=== PATIENT | male | born 1970 ===

== ENCOUNTER 2017-11-11 19:56 | Emergency (ER) | payer MEDICAID ==
[2017-11-11 19:57] VITALS: BMI 33.3
[2017-11-11 20:04] VITALS: BP 129/78; RESP 18; TEMP 99.1
--- NOTE | 2017-11-11 21:21 | ED PDOC ---
Lower Extremity Pain/Injury Time Seen by Provider: 11/11/17 20:36 Chief Complaint (Nursing): Lower Extremity Problem/Injury Chief Complaint (Provider): Right ankle injury History Per: Patient History/Exam Limitations: no limitations Onset/Duration Of Symptoms: Days Current Symptoms Are (Timing): Still Present Additional Complaint(s): Patient reports sustaining an injury to right ankle a few weeks ago. He was evaluated at [facility] on 10/25 and had x-rays showing fracture of distal fibula , splint was applied. Patient states he went to follow up with a doctor and was advised to come to the ED. He notes pain and swelling to right ankle and foot. Otherwise: (-) fever, (-) numbness, (-) other injury. PMD: Richmond Avila Past Medical History Reviewed: Historical Data, Nursing Documentation, Vital Signs Vital Signs: Last Vital Signs Temp 99.1 F 11/11/17 20:01 Pulse 106 H 11/11/17 20:01 Resp 18 11/11/17 20:01 BP 129/78 11/11/17 20:01 Pulse Ox 98 11/11/17 20:01 - Medical History PMH: Asthma (NEVER HOSPITALIZED), Fractures - Family History Family History: States: Unknown Family Hx - Home Medications Home Medications: Ambulatory Orders Medication Instructions Recorded Albuterol HFA [Ventolin HFA 90 2 puff IH [id number] PRN 03/26/16 mcg/actuation (8 g)] Fluticasone Nasal [Flonase] 1 spr NS DAILY 03/26/16 Ibuprofen [Motrin Tab] 800 mg PO BID PRN 03/26/16 Montelukast [Singulair] 10 mg PO DAILY 03/26/16 - Allergies Allergies/Adverse Reactions: Allergies Allergy/AdvReac Type Severity Reaction Status Date / Time Penicillins Allergy Intermediate RASH Verified 03/26/16 11:16 Review of Systems ROS Statement: Except As Marked, All Systems Reviewed And Found Negative Musculoskeletal: Positive for: Foot Pain Neurological: Negative for: Weakness, Numbness Physical Exam - Reviewed Nursing Documentation Reviewed: Yes Vital Signs Reviewed: Yes - Physical Exam Comments: GENERAL APPEARANCE: Patient is awake, alert, oriented x 3, in no acute distress. SKIN: Warm, dry; (-) cyanosis. LOWER EXTREMITY: (+) Edema to the right ankle and over dorsum of foot, (+) ecchymosis noted, (+) tender to palpation. Cap refill is normal. Achilles tendon intact and nontender. Knee: (-) injury. CARDIOVASCULAR: (+) distal pulse. NEUROLOGIC: (+) distal sensation. - ECG O2 Sat by Pulse Oximetry: 98 (RA) Pulse Ox Interpretation: Normal Medical Decision Making Medical Decision Making: Impression: Right ankle injury Time: 21:07 Initial Plan: --Repeat right ankle x-ray --Obtain right foot x-ray --Requested podiatry consult XR R ANKLE: No fracture, no dislocation as read by MYRIAM XR R FOOT: No fracture, no dislocation as read by MYRIAM Case discussed with podiatry resident Dr. Hester, who reviewed the x-rays and agreed to order an x-ray of the tib-fib, she will come and evaluate the patient. Dr. Hester came and evaluated the patient. XR tib-fib reviewed with her. She will consult her attending and Dr. Cotton for further plan of care. XR R TIB-FIB : (+) fracture of the proximal fibula, as read by MYRIAM. Case endorsed to MYRIAM Diggs at midnight pending final disposition as per podiatry resident. Scribe Attestation: Documented by Lainey Roth, acting as a scribe for Yoselin Winters PA-C. Provider Scribe Attestation: All medical record entries made by the Scribe were at my direction and personally dictated by me. I have reviewed the chart and agree that the record accurately reflects my personal performance of the history, physical exam, medical decision making, and the department course for this patient. I have also personally directed, reviewed, and agree with the discharge instructions and disposition. Disposition - Clinical Impression Clinical Impression: Ankle swelling, Foot swelling, Fibula fracture - Patient ED Disposition Is Patient to be Admitted: Transfer of Care (Case endorsed to MYRIAM Diggs at midnight pending final disposition as per podiatry resident.) Counseled Patient/Family Regarding: Studies Performed, Diagnosis - Disposition Disposition Time: 00:00 Condition: STABLE Forms: [employer] (Bangladeshi) - PA / PLATE FITTER / Resident Statement MD/DO has reviewed & agrees with the documentation as recorded.
[2017-11-11 23:33] VITALS: PULSE 95
--- NOTE | 2017-11-11 23:55 | CP.PCM.PN ---
Subjective - Date & Time of Evaluation Date of Evaluation: 11/11/17 Time of Evaluation: 23:45 - Subjective Subjective: Podiatry Consult Note- Dr. Solomon 47 y.o male with PMH of asthma presents to the ED for right ankle swelling and right high fibular fracture. Patient reports that on 10/26/17, he was jogging outside when his ankle rolled inwards and he fell over. Patient reports that he went to the ED at [facility] the same day and was told that he has a right high fibular fracture, placed in a splint, and told to NWB and follow up with an orthopedics. Patient reports that he tried going to the Orthopedics and was denied because the office did not take his insurance. He was told by his doctor to go to the [facility] ED for evaluation. Patient reports pain to the lateral upper right leg. Reports Ibuprofen helps with the pain. Rates the pain 2/10 and describe the pain as a dull pain to the upper leg. Patient also reports swelling to the ankle. Denies ankle pain at the moment when resting. Denies numbness and tingling. Denies nausea, fever, shortness of breath, chest pain, or chills. Reports he has continued to NWB in crutches since the incident. Reports the pain and swelling has decreased since injury. PMD: Dr. Avila PMH: asthma, denies heart disease PSH: upper abdominal surgery/heart surgery? patient reported that had fluid buildup in heart secondary to asthma pump he used; had to perform surgery to remove fluid from chest ALL: Pencillin- swelling MEDS: Ibuprofen FH: mother- denies, father- denies, father's sister- heart disease SH: denies smoking, drinking, or illicit drug use Objective - Vital Signs/Intake and Output Vital Signs (last 24 hours): Temp Pulse Resp BP Pulse Ox 99.1 F 95 H 18 129/78 100 11/11/17 20:01 11/11/17 23:33 11/11/17 20:01 11/11/17 20:01 11/11/17 23:33 - Constitutional Appears: Well, Non-toxic, No Acute Distress - ENT Exam ENT Exam: Mucous Membranes Moist - Cardiovascular Exam Cardiovascular Exam: +S1, +S2 - Extremities Exam Extremities Exam: absent: Calf Tenderness Additional comments: VASC: DP and PT 2/4 bilaterally, CFT < 3 seconds to the digits, temperature gradient WNL, moderate non pitting edema noted to the right ankle and forefoot ORTHO: moderate pain with palpation to the right proximal fibular at the fibular neck, mild pain to the medial malleolus, mild pain with external rotation and dorsiflexion of the right ankle, no appreciable pain with palpation to the lateral ligaments or deltoid ligaments. Able to wiggle toes, MM is 4/5 in all four compartments in dorsiflexion, plantarflexion, inversion, and eversion. Able to perform right ankle active ROM and passive ROM, no pain to heel squeeze or palpation to the heel Neuro: protective and gross sensation intact bilaterally Derm: ecchymosis noted to the medial aspect of the heel, no blisters, no erythema, no open lesions noted, no clinical signs of infection - Neurological Exam Neurological Exam: Alert, Awake, Oriented x3 - Psychiatric Exam Psychiatric exam: Normal Affect, Normal Mood Assessment and Plan - Assessment and Plan (Free Text) Assessment: 47 y.o male with PMH of asthma with right high fibular fracture and right ankle swelling with possible syndemosis injury Plan: Patient examined and evaluated Discussed plan in detail with attending Dr. Solomon X-rays high tib-fib reviewed- right proximal fibular fracture noted X-rays ankle reviewed- no fractures or dislocation noted Ibuprofen for pain and swelling Instructed on RICE protocol Pt to continue NWB in crutches in posterior splint and Guzmán Compression Explained to patient about possible right ankle syndesmotic injury. May need MRI or surgery in the future to repair. Patient reports understanding. Pt to follow up with podiatry clinic with Dr. Solomon on Saturday Pt instructed to call for an appointment Thank you for allowing us to take part in patient's care
[2017-11-12 00:07] VITALS: O2SAT 98
--- NOTE | 2017-11-12 01:10 | ED PDOC ---
- ECG O2 Sat by Pulse Oximetry: 98 (RA) - Progress ED Course And Treament: Case endorsed to software writer from [facility] pending podiatry consult Patient placed in posterior splint by podiatry resident on-call, advised nonweight bearing with crutches. Follow up with Dr. Solomon in podiatry clinic Wed. Rx ibuprofen given Return precautions given Disposition - Clinical Impression Clinical Impression: Ankle swelling, Foot swelling, Fibula fracture - POA Present On Arrival: None, Falls Or Trauma - Disposition Referrals: Podiatry Clinic [Outside] Disposition: Routine/Home Disposition Time: 01:10 Condition: STABLE Prescriptions: Ibuprofen [Motrin Tab] 1 tab PO Q6 PRN #20 tab PRN Reason: Pain, Moderate (4-7) Instructions: Fibula Fracture, Ankle Sprain Forms: [employer] (Romanian)
--- NOTE | 2017-11-12 08:49 | RAD ---
PROCEDURE: Right Foot Radiographs. HISTORY: h/o fx to fibula COMPARISON: None. FINDINGS: BONES: No acute fracture. JOINTS: Normal. SOFT TISSUES: Normal. OTHER FINDINGS: Achilles enthesophyte. Inferior plantar calcaneal spur. IMPRESSION: No demonstrated acute fracture or dislocation.
--- NOTE | 2017-11-12 08:49 | RAD ---
PROCEDURE: Right Ankle Radiographs. HISTORY: h/o fx to fibula COMPARISON: None FINDINGS: BONES: No acute fracture. JOINTS: Ankle mortise maintained. Talar dome intact SOFT TISSUES: Normal. OTHER FINDINGS: Achilles enthesophyte. Inferior plantar calcaneal spur. IMPRESSION: No demonstrated acute fracture or dislocation.
--- NOTE | 2017-11-12 08:53 | RAD ---
PROCEDURE: Radiographs of the right tibia and fibula. HISTORY: pain, h/o fib fracture COMPARISON: None available. TECHNIQUE: Frontal and lateral views obtained. FINDINGS: BONES: Minimally displaced acute proximal fibular meta diaphyseal fracture. JOINT SPACES: Unremarkable. OTHER FINDINGS: Achilles enthesophyte. Small inferior plantar calcaneal spur. IMPRESSION: Minimally displaced acute proximal fibular metaphyseal fracture.
== END 2017-11-12 01:20 | disposition home or self-care (01) ==
LOC: H.ER 19:56
DX: S82.401D Unspecified fracture of shaft of right fibula, subsequent encounter for closed fracture with routine healing (principal); M79.89 Other specified soft tissue disorders; J45.909 Unspecified asthma, uncomplicated; Z88.0 Allergy status to penicillin

== ENCOUNTER 2018-01-01 08:40 | Emergency (ER) | payer MEDICAID ==
[2018-01-01 08:40] VITALS: BMI 33.0
--- NOTE | 2018-01-01 11:10 | ED PDOC ---
HPI: Wound Care - HPI Time Seen by Provider: 01/01/18 09:02 Chief Complaint (Nursing): Wound Check Chief Complaint (Provider): Cast Removal History Per: Patient, Agile Test Lead (Lissy Agile Test Lead Landon) Exam Limitations: no limitations Onset/Duration Of Symptoms: Unknown Current Symptoms Are (Timing): Still Present Additional Complaint(s): 47 y/o male with a PMHx of heart problems (unknown specifics) presenting to request the cast on his RLE be removed. Patient is a very poor historian and is unable to tell provider when the cast or by who. Per old charts, patient visited a podiatry clinic to have his ankle cast placed and a catheter. Patient is complaining of itchiness and discomfort in the area of his cast. History is limited due to patients lack of awareness of care history. PMD: None Past Medical History Reviewed: Historical Data, Nursing Documentation, Vital Signs Vital Signs: Last Vital Signs Temp 98.2 F 01/01/18 08:57 Pulse 62 01/01/18 08:57 Resp 20 01/01/18 08:57 BP 130/72 01/01/18 08:57 Pulse Ox 98 01/01/18 08:57 - Medical History PMH: Asthma (NEVER HOSPITALIZED), Fractures Other PMH: Heart problems (unknown specifics) - Surgical History Surgical History: No Surg Hx - Family History Family History: States: Unknown Family Hx - Home Medications Home Medications: Ambulatory Orders Medication Instructions Recorded Albuterol HFA [Ventolin HFA 90 2 puff IH [id number] PRN 03/26/16 mcg/actuation (8 g)] Fluticasone Nasal [Flonase] 1 spr NS DAILY 03/26/16 Ibuprofen [Motrin Tab] 800 mg PO BID PRN 03/26/16 Montelukast [Singulair] 10 mg PO DAILY 03/26/16 - Allergies Allergies/Adverse Reactions: Allergies Allergy/AdvReac Type Severity Reaction Status Date / Time Penicillins Allergy Intermediate RASH Verified 03/26/16 11:16 Review of Systems ROS Statement: Except As Marked, All Systems Reviewed And Found Negative Musculoskeletal: Positive for: Leg Pain (RLE) Physical Exam - Reviewed Nursing Documentation Reviewed: Yes Vital Signs Reviewed: Yes - Physical Exam Appears: Positive for: Non-toxic, No Acute Distress Extremity: Positive for: Other (short leg cast to the RLE with poor hygiene to the area) Neurologic/Psych: Positive for: Alert - ECG O2 Sat by Pulse Oximetry: 98 (RA) Pulse Ox Interpretation: Normal Medical Decision Making Medical Decision Making: Plan: Contacted podiatry to evaluate for indications for removal. Podiatry reviewed xrays and removed his cast, placed into appropriate brace per podiatry and to followup as outpatient Scribe Attestation: Documented by Tomas Lees, acting as a scribe for Mckinley Hampton III, DO. Provider Scribe Attestation: All medical record entries made by the Scribe were at my direction and personally dictated by me. I have reviewed the chart and agree that the record accurately reflects my personal performance of the history, physical exam, medical decision making, and the department course for this patient. I have also personally directed, reviewed, and agree with the discharge instructions and disposition. Disposition - Clinical Impression Clinical Impression: Ankle injury, Encounter for cast check - Patient ED Disposition Is Patient to be Admitted: No Counseled Patient/Family Regarding: Studies Performed, Diagnosis - Disposition Referrals: Podiatry Clinic [Outside] Disposition: Routine/Home Disposition Time: 11:30 Condition: STABLE Additional Instructions: See tester operator helper for followup as directed. Instructions: Ankle Sprain (DC) Forms: [employer] (East Timorese)
[2018-01-01 19:32] VITALS: BP 128/67; PULSE 79; RESP 18; TEMP 98
--- NOTE | 2018-01-01 21:00 | CP.PCM.PN ---
Subjective - Date & Time of Evaluation Date of Evaluation: 01/01/18 Time of Evaluation: 12:00 Objective - Vital Signs/Intake and Output Vital Signs (last 24 hours): Temp Pulse Resp BP Pulse Ox 98 F 79 18 128/67 99 01/01/18 13:00 01/01/18 13:00 01/01/18 13:00 01/01/18 13:00 01/01/18 13:00
--- NOTE | 2018-01-02 12:17 | RAD ---
PROCEDURE: Right Ankle Radiographs. HISTORY: assess for syndesmotic injury COMPARISON: None FINDINGS: BONES: No interval acute cardiopulmonary disease appreciated. JOINTS: Normal. No osteoarthritis. Ankle mortise maintained. Talar dome intact SOFT TISSUES: Normal. OTHER FINDINGS: None. IMPRESSION: Unremarkable right ankle radiographs.
--- NOTE | 2018-01-02 12:20 | RAD ---
PROCEDURE: Radiographs of the right tibia and fibula. HISTORY: 2 months high fib fx COMPARISON: Right tibia-fibula radiographs 11/11/2017. TECHNIQUE: Frontal and lateral views obtained. FINDINGS: BONES: There is a fracture of the proximal right fibula which is at an intermediate stage of healing. Cortical bridging is appreciated at the medial as well as lateral sides of the fracture. No new fracture appreciable. GB appears diffusely unremarkable with local soft tissues. JOINT SPACES: Unremarkable. OTHER FINDINGS: None. IMPRESSION: Proximal right fibular fracture abdomen intermediate stage of healing. Unremarkable right tibia.
--- NOTE | 2018-01-02 13:52 | CP.PCM.CON ---
History of Present Illness - History of Present Illness History of Present Illness: Consult note for Dr. Solomon 47M seen in ED 7 weeks s/p high right fibula fracture with ankle injury. Patient was following up in podiatry clinic with Dr. Solomon and was scheduled for surgery last month pending cardiac clearance and MRI but patient never followed up in clinic. He states that he has received cardiac clearance and had the MRI done at an outpatient center. He presents to ED today because his LE BK cast is no longer functional. Patient is seen to have a straightened clothes oil changer jammed down in to his cast which he states is to itch his legs. He also admits to trying to pull the cast apart and walking on it continuously. Patient is AAO x 3 and NAD. Denies any recent pedal complaints. Denies any recent N/V/F/ C/CP/SOB/D Review of Systems - Review of Systems All systems: reviewed and no additional remarkable complaints except Review of Systems: as per HPI Past Patient History - Past Medical History & Family History Past Medical History?: Yes - Past Social History Smoking Status: Never Smoked - CARDIAC Hx Cardiac Disorders: Yes (HX PERICARDIAL EFFUSION 1990) - PULMONARY Hx Asthma: Yes (NEVER HOSPITALIZED) - MUSCULOSKELETAL/RHEUMATOLOGICAL Hx Fractures: Yes - PSYCHIATRIC Hx Substance Use: No - SURGICAL HISTORY Hx Surgeries: Yes (PERICARDIAL WINDOW 1990) - ANESTHESIA Hx Anesthesia: Yes Hx Anesthesia Reactions: No Meds Allergies/Adverse Reactions: Allergies Allergy/AdvReac Type Severity Reaction Status Date / Time Penicillins Allergy Intermediate RASH Verified 03/26/16 11:16 Physical Exam - Constitutional Appears: Well, Non-toxic, No Acute Distress - Head Exam Head Exam: ATRAUMATIC, NORMOCEPHALIC - Extremities Exam Additional comments: RLE cast noted to be dirty, wet and not intact Vasc: DP/PT pulses fully palpable 2/4 b/l. Skin temperature warm to warm from proximal to distal. CFT < 3 seconds to all digits b/l. No edema noted b/l Neuro: Epicritic and protective sensation grossly intact b/l Derm: No open lesions, wounds, maceration, xerosis, abnormal pigmentation or abnormal growths noted b/l MSK: ROM on eversion, inversion, dorsiflexion or plantarflexion limited but WNL given that patient has been in a cast for multiple weeks. No POP to entire LE including proximal fibula. MMT 5/5 in all major muscle groups - Neurological Exam Neurological exam: Alert, Oriented x3 - Psychiatric Exam Psychiatric exam: Normal Affect, Normal Mood Results - Vital Signs Recent Vital Signs: Last Vital Signs Temp 98 F 01/01/18 13:00 Pulse 79 01/01/18 13:00 Resp 18 01/01/18 13:00 BP 128/67 01/01/18 13:00 Pulse Ox 99 01/01/18 13:00 Assessment & Plan - Assessment and Plan (Free Text) Assessment: 47M seen in ED after failing to return for follow up in podiatry clinic x 6 weeks. Patient has high fibular fracture with BK cast Plan: Patient seen and evaluated Plan discussed with attending Dr. Solomon Afebrile MRI report reviewed: Medial talar dome, medial malleolus bone stress injury. Possible subcortical fracture. Ankle joint effusion, STJ effusion. ATFL severe sprain. Tibial attachment high grade partial tear. Evidence of syndesmotic pathology Given patient's history of non-compliance and lack of pain with ambulation, no surgery will be scheduled at this time Repeat tib-fib xray: Proximal fibular fracture in intermediate stage of healing Ankle xray: Unremarkable Patient leg wrapped in canchola compression Patient instructed to continue ambulation with crutches and follow up in Dr. Solomon's podiatry clinic next week - Date & Time Date: 01/02/18 Time: 14:01
[2018-01-03 15:11] VITALS: O2SAT 98
== END 2018-01-01 13:00 | disposition home or self-care (01) ==
LOC: H.ER 08:40
DX: Z47.89 Encounter for other orthopedic aftercare (principal); Z91.19 Patient's noncompliance with other medical treatment and regimen; Z88.0 Allergy status to penicillin